=== PATIENT | female | born 1980 | race Hispanic/Latino ===

== ENCOUNTER 2023-02-03 16:18 | Emergency (ER) | payer OTHER ==
[~2023-02-03] VITALS: Ht 160 cm; Wt 72.2 kg
[2023-02-03] MEDS ORDERED: FAMOTIDINE 20 MG/2 ML VIAL IV STA (16:35)
[2023-02-03] MEDS ORDERED: KETOROLAC TROMETHAMINE 30 MG/ML VIAL IV STA (16:35)
[2023-02-03] MEDS ORDERED: ONDANSETRON HCL INJ 2MG/ML 2ML 2 MG/ML VIAL IV STA (16:35)
[2023-02-03] MEDS ORDERED: FAMOTIDINE 20 MG/2 ML VIAL IV ONE (16:43)
[2023-02-03] MEDS ORDERED: KETOROLAC TROMETHAMINE 30 MG/ML VIAL ONE (16:43)
[2023-02-03] MEDS ORDERED: SODIUM CHLORIDE 0.9% 1000ML 1,000 ML ONE (16:43)
[2023-02-03] MEDS ORDERED: ONDANSETRON HCL INJ 2MG/ML 2ML 2 MG/ML VIAL ONE (16:43)
[2023-02-03] MEDS ORDERED: SODIUM CHLORIDE 0.9% 1000ML 1,000 ML IV ONE (16:45)
[2023-02-03] MEDS ORDERED: NAPROSYN500 MG PO (18:41)
[2023-02-03 18:57] VITALS: BP 124/64
== END 2023-02-03 19:09 | disposition home or self-care (01) ==
LOC: FSED 17:28
DX: R10.31 Right lower quadrant pain (principal); S39.011A Strain of muscle, fascia and tendon of abdomen, initial encounter; X50.1XXA Overexertion from prolonged static or awkward postures, initial encounter; Y92.89 Other specified places as the place of occurrence of the external cause
CPT/HCPCS: 74176; 80048; 80076; 81003; 81025; 85025; 99284; J1885; J2405; J7030